=== PATIENT | female | born 1960 | race African-American/Black ===

== ENCOUNTER 2018-02-13 05:48 | Emergency (ER) | payer MEDICAID ==
[~2018-02-13] VITALS: Ht 167.6 cm; Wt 161.0 kg
[2018-02-13] MEDS ORDERED: ONDANSETRON HCL 4MG/2ML INJ IV STA ×2 (06:30→09:09)
[2018-02-13] MEDS ORDERED: MORPHINE SULFATE 4 MG/ML CPJ (NOT FOR IM USE) IV STA ×2 (06:30→09:09)
[2018-02-13 07:25] LABS: BASOPHILS % 0.5 % (0.0-2.0); EOSINOPHILS % 2.5 % (0.0-5.0); HEMATOCRIT. 31.6 % (36.0-48.0); HEMOGLOBIN. 10.5 g/dL (12.0-16.0); LYMPHOCYTES % 14.6 % (20.0-50.0); MEAN CORPUSCULAR HEMOGLOBIN 27.9 pg (28.0-32.0); MEAN CORPUSCULAR VOLUME 83.9 fL (81.0-99.0); MEAN PLATELET VOLUME 9.2 fl (7.4-10.4); MONOCYTES % 13.4 % (2.0-8.0); PLATELET 101 x1000/uL (130-400); RED BLOOD CELL COUNT 3.77 mill/uL (4.2-5.4); RED CELL DISTRIBUTION WIDTH 16.9 % (11.6-14.6)
[2018-02-13 07:30] LABS: CHLORIDE 106 mEq/L (98-107)
[2018-02-13 07:31] LABS: INR 1.3; PROTHROMBIN TIME 12.8 sec (9.1-11.1)
[2018-02-13] MEDS ORDERED: KETOROLAC 30MG/ML VIAL IV ONE (09:00)
[2018-02-13 09:22] LABS: CLARITY URINE CLEAR (CLEAR); COLOR URINE DARK YELLOW (YELLOW); KETONES URINE NEGATIVE (NEGATIVE); LEUKOCYTE ESTERASE URINE NEGATIVE (NEGATIVE); NITRITE URINE NEGATIVE (NEGATIVE); OCCULT BLOOD URINE 1+ (NEGATIVE); PROTEIN URINE 1+ (NEGATIVE); SPECIFIC GRAVITY URINE 1.015 (1.005-1.030)
[2018-02-13 09:35] LABS: HEMATOCRIT 31.3 % (36.0-48.0); HEMOGLOBIN 10.3 g/dL (12.0-16.0)
[2018-02-13 09:49] VITALS: BP 185/95
== END 2018-02-13 10:25 | disposition home or self-care (01) ==
LOC: ER 05:48
DX: N93.9 Abnormal uterine and vaginal bleeding, unspecified (principal); R11.0 Nausea; R19.7 Diarrhea, unspecified; I50.9 Heart failure, unspecified; J44.9 Chronic obstructive pulmonary disease, unspecified; Z98.890 Other specified postprocedural states
CPT/HCPCS: 36415; 74176; 76830; 76856; 80053; 81003; 83690; 85014; 85018; 85025; 85610; 96374; 96375; 96376; 99285; J1885; J2270; J2405; Z7610